=== PATIENT | female | born 1995 | race Caucasian/White ===

== ENCOUNTER 2020-11-06 11:23 | Day surgery (SDC) | payer OTHER ==
[~2020-11-06] VITALS: Ht 154.9 cm; Wt 59.7 kg
[2020-11-06 11:49] VITALS: BP 124/77; PULSE 73; TEMP 97.5
[2020-11-06] MEDS ORDERED: DEPO-PROVER150 MG/M1 IM (12:03)
[2020-11-06] MEDS ORDERED: TYLENOL 325MG325 MG PO (12:03)
--- NOTE | 2020-11-06 14:28 | NUR ---
Patient continues to complain of pain 8/10 to left flank, additional dose of pain medication was given
[2020-11-06 16:54] VITALS: BP 117/72; PULSE 91; TEMP 98.6
--- NOTE | 2020-11-06 18:00 | NUR ---
Patient to OR by bed.
[2020-11-06 21:14] VITALS: TEMP 99.3
[2020-11-06 21:50] VITALS: BP 112/68; PULSE 95; TEMP 100
[2020-11-06 22:52] VITALS: TEMP 99.2
--- NOTE | 2020-11-06 23:25 | NUR ---
REPORT RECEIVED FROM DAY SHIFT NURSE. PT IN SURGERY AT SHIFT CHANGE.
[2020-11-07] VITALS (15 sets, daily range): BP systolic 97–125; BP diastolic 55–71; PULSE 65–109; TEMP 97.7–98.8
--- NOTE | 2020-11-07 04:20 | NUR ---
PT RETURNED TO RM 325 AT 2014 AFTER AN UNSUCCESSFUL ATTEMPT TO RETRIEVE A KIDNEY STONE. TEMPS TAKEN EVERY HOUR ORDERED. TAKING ICE CHIPS AND SIPS OF WATER SPARINGLY. TEMP AT [address] MOMIN NOTIFIED OF TEMP. ORDER TO GIVE TYLENOL 650MG PO. TYLENOL GIVEN. GENTAMYCIN ORDERED AND WAS GIVEN. CEFAZOLIN 1GM GIVEN ORDERED. DENIES PAIN AND NAUSEA. CONSENT SIGNED AND ON CHART. CALL LIGHT IN REACH. PT SPOUSE CALLED AND GIVEN UPDATE AND VISITED WITH PT ON PHONE SHORTLY AFTER RETURNING TO ROOM.
--- NOTE | 2020-11-07 08:00 | NUR ---
Patient alert and oriented, answers questions appropriately. See assessment. Abdomen soft, non tender, non distended. Bowel sounds active x4 quads. C/o urinary burning, no c/o urinary frequency or hesitancy. No c/o flank pain. No other c/o at this time.
--- NOTE | 2020-11-07 10:57 | NUR ---
Patient returns from nephrostomy tube placement.
--- NOTE | 2020-11-07 14:34 | NUR ---
Plans to return home to [place] with Homero . SW met with patient about care. Patient reports that she has a new PCP at [facility] and has only been in [place] for 3 Weeks. Patient reports that she would use [facility] in [place] for medications. Patient reports having a rescue inhaler for use. Denies any other DME ues or needing services. Will continue to follow care for needs.Educated on services.
--- NOTE | 2020-11-07 18:15 | NUR ---
Discharge instructions reviewed with patient, verbalized understanding. Nephrostomy care reviewed with patient. Discharged via wheelchair to auto/home with family at 1800.
== END 2020-11-07 18:00 | disposition home or self-care (01) ==
LOC: SDCO 11:23 → JCC 11:23 → SURG 22:00 → SDCO 11-07 18:00
DX: N13.2 Hydronephrosis with renal and ureteral calculous obstruction (principal); D64.9 Anemia, unspecified; J45.909 Unspecified asthma, uncomplicated; G47.30 Sleep apnea, unspecified; Z88.2 Allergy status to sulfonamides; Z88.3 Allergy status to other anti-infective agents
CPT/HCPCS: OP; C1769; G0378; G0379; J0690; J1100; J1580; J2175; J2250; J2270; J2405; J2704; J3010; J7030

== ENCOUNTER 2020-11-13 13:11 | Day surgery (SDC) | payer OTHER ==
[~2020-11-13] VITALS: Ht 154.9 cm; Wt 60.3 kg
[2020-11-13] VITALS (9 sets, daily range): BP systolic 104–140; BP diastolic 52–84; PULSE 71–115; TEMP 97.9–98.1
[~2020-11-13 13:11] MED LIST: DEPO-PROVER150 MG/M1 IM; TYLENOL 325MG325 MG PO
[2020-11-13] MEDS ORDERED: CIPRO 500MG TA500 MG PO (14:57)
[2020-11-13] MEDS ORDERED: NORCO 325 MG-51 TAB PO (14:58)
[2020-11-13] MEDS ORDERED: TYLENOL 500MG500 MG PO (14:58)
--- NOTE | 2020-11-13 17:42 | NUR ---
Patient to room via bed from PACU. Alert and oriented x4. Having pain on right side of tongue, due to breathing tube used during surgery. Dressing to left flank area CDI. Young to dependent drainage draining clear yellow urine. Oriented to room. Will provide water to patient.
--- NOTE | 2020-11-13 22:47 | NUR ---
Patient resting in bed. She tolerated dinner well. No complaints of pain. Dressing clean, dry, and intact to her left back. Post op vitals complete. VSS. No other needs at this time. Call light in reach.
[2020-11-14 00:06] VITALS: BP 101/82; PULSE 109; TEMP 98.6
--- NOTE | 2020-11-14 01:21 | NUR ---
Patient got up and walked the halls. Now back in bed. States she has some discomfort.
[2020-11-14 04:38] VITALS: BP 90/47; PULSE 85; TEMP 98.5
--- NOTE | 2020-11-14 05:11 | NUR ---
Patient's blood pressure dropped to 90/47. Called Dr. De La Cruz. Phone orders for 1 L NS bolus and 500 mg levaquen one time dose. Administering now. Will recheck patient's blood pressure.
--- NOTE | 2020-11-14 06:19 | NUR ---
Patient's blood pressure is 113/61.
[2020-11-14 07:37] VITALS: BP 116/69; PULSE 85; TEMP 98.2
--- NOTE | 2020-11-14 08:00 | NUR ---
PATIENT SLEEPING SOUNDLY WITH LIGHT OFF.
--- NOTE | 2020-11-14 09:30 | NUR ---
PATIENT IS AWAKE AND SITTING UP IN BED WITH BREAKFAST TRAY. RECENTLY ROUNDED. DC'D TO PER ORDERS. TO CATH TIP INTACT AND PATIENT TOLERATED WELL. GAVE POST TO REMOVAL EDUCATION. NO C/O PAIN OR NAUSEA. PATIENT EATING BREAKFAST. HEAD TO TOE ASSESSMENT WNL. NO OTHER NEEDS. CALL LIGHT IN REACH.
[2020-11-14 11:05] VITALS: BP 91/45; PULSE 109; TEMP 98.2
--- NOTE | 2020-11-14 11:15 | NUR ---
PATIENT AMBULATED TO BATHROOM INDEPENDENTLY AND WAS ABLE TO VOID. UNSEEN OUTPUT. HAT IN BATHROOM, WILL MONITOR
--- NOTE | 2020-11-14 11:42 | NUR ---
SW met with patient to conduct intake evaluation. Patient lives [place] [address] with her Homero (P# [phone]). Patient and were [place], so patient has not been able to set up with primary care. Patient reports that medications can be sent to [facility] in [place] over the weekend. Patient does not have DPOA-HC and was not interested in filling out paperwork at this time. Patient is independent with activity and requires no DME. Patient plans to return home with who will provide transportation for her. Patient denies questions or concerns at this time. Social work will continue to follow.
--- NOTE | 2020-11-14 13:30 | NUR ---
PATIENT IS EATING/DRINKING/VOIDING WELL. LEFT FLANK INCISION IS TENDER BUT PAIN IS MANAGED. AMBULATING INDEPENDENTLY. PATIENT HOPING TO DISCHARGE HOME TODAY.
--- NOTE | 2020-11-14 14:30 | NUR ---
WENT OVER DISCHARGE INSTRUCTIONS AND DISCUSSED F/U APT WITH . PATIENT WILL CALL OFFICE ON MONDAY FOR APT. DC'D LEFT AC IV, COVERED SITE WITH GAUZE [employer] COBAN. CHANGED LEFT FLANK DRESSING AND APPLIED GAUZE & PAPER TAPE. SENT HOME DRESSING SUPPLIES WITH PATIENT. GAVE REQUESTED STOOL SOFTNER. PATIENT CALLED TO COME GET HER.
--- NOTE | 2020-11-14 15:10 | NUR ---
PATIENT'S RIDE IS HERE. PATIENT DRESSED AND PACKED PERSONAL BELONGINGS. ESCORTED OUT VIA WC TO PERSONAL VEHICLE.
== END 2020-11-14 15:10 | disposition home or self-care (01) ==
LOC: SDCO 13:11 → JCC 17:42 → SDCO 17:42 → JCC 11-14 15:10 → SDCO 11-14 15:10
DX: N20.1 Calculus of ureter (principal); D64.9 Anemia, unspecified; G47.30 Sleep apnea, unspecified; J45.909 Unspecified asthma, uncomplicated; Z20.822 Contact with and (suspected) exposure to COVID-19; Z79.2 Long term (current) use of antibiotics; Z88.1 Allergy status to other antibiotic agents; Z88.2 Allergy status to sulfonamides; Z93.6 Other artificial openings of urinary tract status; I95.81 Postprocedural hypotension; I97.191 Other postprocedural cardiac functional disturbances following other surgery; Z79.3 Long term (current) use of hormonal contraceptives; Z79.891 Long term (current) use of opiate analgesic
CPT/HCPCS: OP; A4314; C1758; C1769; C1894; C2617; J0330; J0690; J1100; J1885; J1956; J2270; J2405; J2550; J2704; J3010; J7030; J7120; Q9967